=== PATIENT | male | born 1975 | race Caucasian/White ===

== ENCOUNTER 2024-01-29 12:39 | Emergency (ER) | payer OTHER ==
[2024-01-29 13:36] VITALS: BP 120/79; PULSE 85; RESP 20; TEMP 99; BMI 33.8
== END 2024-01-29 17:21 | disposition home or self-care (01) ==
LOC: FER 12:39
DX: R19.02 Left upper quadrant abdominal swelling, mass and lump (principal)
CPT/HCPCS: 74176-TC; 76705-TC; 99284-25